=== PATIENT | female | born 1970 | race Caucasian/White ===

== ENCOUNTER → 2018-05-10 | Outpatient (CLI) | payer OTHER ==
[2018-05-10 16:28] LABS: Basophils # (A) 0.1 k/uL (0-0.2); Basophils % (A) 1 %; Eosinophils # (A) 0.2 k/uL (0-0.7); Eosinophils % (A) 2 %; HCT 40.8 % (34.0-46.0); HGB 13.4 gm/dL (11.4-16.0); Lymphocytes # (A) 2.7 k/uL (1.0-4.8); Lymphocytes % (A) 30 %; MCH 32.5 pg (25.0-35.0); MCHC 32.9 g/dL (31.0-37.0); MCV 98.8 fL (80.0-100.0); Mean Platelet Volume 6.8; Monocytes # (A) 0.6 k/uL (0-1.0); Monocytes % (A) 7 %; Neutrophils # (A) 5.2 k/uL (1.3-7.7); Neutrophils % (A) 59 %; Platelet Count 265 k/uL (150-450); RBC 4.13 m/uL (3.80-5.40); RDW 12.4 % (11.5-15.5); WBC 8.9 k/uL (3.8-10.6)
== END ==
LOC: LABPAT 15:36
PROVIDERS: ATTEND Obstetrics & Gynecology
DX: Z01.812 Encounter for preprocedural laboratory examination (principal); N92.0 Excessive and frequent menstruation with regular cycle; N93.8 Other specified abnormal uterine and vaginal bleeding
CPT/HCPCS: 85025

== ENCOUNTER 2018-05-14 07:26 | Day surgery (SDC) | payer OTHER ==
[2018-05-10 08:33] VITALS: BMI 27.3
[~2018-05-14 07:26] MED LIST: DEXAMETHASONE SOD PHOSPHATE 10 MG/ML 1 ML VIAL IV ONE; HYDROmorphone 1 MG/ML 1 ML SYRINGE IVP PRN; LACTATED RINGERS 1,000 ML IV SCH; MIDAZOLAM 2 MG/2 ML VIAL IV PRN; ONDANSETRON 4 MG/2 ML VIAL IVP ONE; Pre Op ABX Message 1 EACH MISC MISCELLANE ONE; SCOPOLAMINE 1.5MG/72HR PATCH TRANSDERM ONE
[2018-05-14] MEDS ORDERED: LIDOCAINE 1% 20 ML VIAL (10MG/ML) FOR IV START INTRADERMA ONE (08:15)
[2018-05-14] MEDS ORDERED: SIMETHICONE 80 MG CHEWABLE PO PRN (08:54)
[2018-05-14] MEDS ORDERED: KETOROLAC 30 MG/ML 1 ML VIAL IVP PRN (08:54)
[2018-05-14] MEDS ORDERED: METOCLOPRAMIDE 5 MG/ML 2 ML VIAL IVP PRN (08:54)
[2018-05-14] MEDS ORDERED: IBUPROFEN 600 MG TAB PO PRN (08:54)
[2018-05-14] MEDS ORDERED: Acetaminophen-Codeine 300-30mg TAB PO PRN ×2 (08:54)
[2018-05-14] MEDS ORDERED: diphenhydrAMINE 50 MG/ML 1 ML VIAL IVP PRN (08:54)
[2018-05-14] MEDS ORDERED: ONDANSETRON 4 MG/2 ML VIAL IVP PRN (08:54)
[2018-05-14] MEDS ORDERED: KETOROLAC 30 MG/ML 1 ML VIAL ONE (08:56)
[2018-05-14] MEDS ORDERED: SUCCINYLCHOLINE CHLORIDE 100 MG/5 ML SYR IV ONE (08:56)
[2018-05-14] MEDS ORDERED: LIDOCAINE 1% INJ 10MG/ML (20 ML MDV) ONE (08:56)
[2018-05-14] MEDS ORDERED: GLYCOPYRROLATE 0.2 MG/ML 2 ML VIAL ONE (08:56)
[2018-05-14] MEDS ORDERED: PROPOFOL 10 MG/ML 20 ML VIAL IV ONE (08:56)
[2018-05-14] MEDS ORDERED: MIDAZOLAM 2 MG/2 ML VIAL ONE (08:56)
[2018-05-14] MEDS ORDERED: fentaNYL (PF) 50 MCG/ML 2 ML AMP ONE (08:56)
[2018-05-14] MEDS ORDERED: LACTATED RINGERS 1,000 ML IV SCH (09:00)
--- NOTE | 2018-05-14 09:30 | P.OP ---
Date of Procedure: 05/14/18 Preoperative Diagnosis: #1. Dysfunctional uterine bleeding #2. Menorrhagia Postoperative Diagnosis: Same Procedure(s) Performed: #1. Diagnostic hysteroscopy #2. NovaSure endometrial ablation Anesthesia: SIVA Surgeon: Garth Ybarra Estimated Blood Loss (ml): 5 IV fluids (ml): 400 Urine output (ml): 75 Pathology: none sent Condition: stable Disposition: PACU Operative Findings: Preoperative pelvic examination demonstrated a 4-5 week slightly anteverted mobile normal shaped uterus with normal adnexa bilaterally. Intraoperatively, the bilateral tubal ostia were seen. There was a small amount of shaggy endometrial tissue along the posterior wall of the fundus. No pathologic findings were noted within the in vitro cavity. The uterus sounded to 8.5 cm with a cervical length of 3.5 cm. The settings for the NovaSure tool where a length of 5.0 cm, a width of 3.6 cm for a total power of 99 W. The total run time was 77 seconds after which time the base unit read "procedure complete." The postprocedural result appeared to be excellent. The patient is a potential candidate for vaginal hysterectomy should become necessary. Description of Procedure: The patient was prepped and draped in usual fashion after general endotracheal anesthesia was administered by the anesthesiologist. A weighted speculum was placed in the bladder draining approximately 75 mL of clear jammie urine. The anterior lip of the cervix was grasped with a single-tooth tenaculum and the cervix and uterus sounded to 3.5 cm an 8.5 cm respectively. Serial dilation was carried out to admit the diagnostic hysteroscope which was placed to the fundus of the uterus with the findings as noted above. There was no apparent pathology and the bilateral tubal ostia were seen. There is a small amount of shaggy endometrium along the posterior fundal portion. The scope was set aside in the NovaSure tool placed to the fundus of the uterus and opened. It was then seated properly with the settings as noted above, a length of 5.0 cm, a width of 3.6 cm for a total power of 99 W. The cavity check was attempted and passed without difficulty. The tool was enabled and the run was started. After total run time of 77 seconds, the unit disengaged and the base unit read "procedure complete." The tool was closed, removed, and discarded. The diagnostic scope was replaced and the uterine cavity and the result appeared to be excellent. All instrumentation was then removed. One point of the tenaculum was noted to be bleeding and made hemostatic with pressure. Estimated blood loss for the entire case was less than 5 mL. There were no complications. All sponge, inserted, and needle counts were correct. The patient is a potential candidate for vaginal instructed he should become necessary in the future. The patient tolerated the procedure well and proceeded to the recovery room in stable condition.
[2018-05-14 09:50] VITALS: TEMP 97.3
[2018-05-14 10:21] VITALS: BP 136/83; RESP 18
[2018-05-14 10:42] VITALS: PULSE 51
== END 2018-05-14 11:10 | disposition home or self-care (01) ==
LOC: OR 07:26
PROVIDERS: ATTEND Obstetrics & Gynecology
DX: N93.8 Other specified abnormal uterine and vaginal bleeding (principal); N92.0 Excessive and frequent menstruation with regular cycle; E07.9 Disorder of thyroid, unspecified; K21.9 Gastro-esophageal reflux disease without esophagitis; Z79.899 Other long term (current) drug therapy; Z79.890 Hormone replacement therapy
CPT/HCPCS: 58563; 81025; J2250; J1100; J2405; J2001; J3010; J1885; J0330; J2704